=== PATIENT | male | born 1980 | race Caucasian/White ===

== ENCOUNTER 2018-10-16 11:35 | Emergency (ER) | payer OTHER ==
[~2018-10-16] VITALS: Ht 180.3 cm; Wt 83.9 kg
[2018-10-16 11:44] VITALS: Ht 180.3 cm; Wt 83.9 kg
[2018-10-16 15:36] VITALS: BP 140/95
== END 2018-10-16 16:10 | disposition home or self-care (01) ==
LOC: ED 11:35
DX: J06.9 Acute upper respiratory infection, unspecified (principal); J45.909 Unspecified asthma, uncomplicated

== ENCOUNTER 2019-02-16 02:57 | Emergency (ER) | payer OTHER ==
[~2019-02-16] VITALS: Ht 180.3 cm; Wt 84.4 kg
[2019-02-16 03:02] VITALS: Ht 180.3 cm; Wt 84.4 kg
[2019-02-16 04:11] LABS: BASOPHIL % 1.1 % (0-2); PLATELET COUNT 267 x10^3mcL (130-400)
[2019-02-16 04:21] LABS: CALCIUM 8.7 mg/dL (8.5-10.1); CARBON DIOXIDE 28.4 mmol/L (21-32); CHLORIDE SERUM 103 mmol/L (98-107); CREATININE SERUM 0.9 mg/dL (0.7-1.3); GFR1 > 60 mL/min; GLUCOSE SERUM 109 mg/dL (74-106); POTASSIUM SERUM 3.7 mmol/L (3.5-5.1); SODIUM SERUM 139 mmol/L (136-145)
[2019-02-16 05:09] VITALS: BP 136/82
== END 2019-02-16 05:09 | disposition home or self-care (01) ==
LOC: ED 02:57
PROVIDERS: Emergency Medicine
DX: R07.89 Other chest pain (principal); F41.9 Anxiety disorder, unspecified; J45.909 Unspecified asthma, uncomplicated
CPT/HCPCS: 36415; Q0092

== ENCOUNTER 2019-08-14 20:41 | Emergency (ER) | payer OTHER ==
[2019-08-14 21:08] VITALS: BP 126/81
== END 2019-08-14 23:15 | disposition home or self-care (01) ==
LOC: ED 20:41
DX: J45.901 Unspecified asthma with (acute) exacerbation (principal)
CPT/HCPCS: J2930; J7613; J7620

== ENCOUNTER 2020-02-28 16:38 | Emergency (ER) | payer OTHER, SELFPAY ==
[~2020-02-28] VITALS: Ht 180.3 cm; Wt 78.9 kg
[2020-02-28 17:08] VITALS: Ht 180.3 cm; Wt 78.9 kg
[2020-02-28 17:46] LABS: BASOPHIL % 0.5 % (0-2); PLATELET COUNT 286 x10^3mcL (130-400); RED CELL DISTRIBUTION WIDTH 13.5 % (11.5-14.5)
[2020-02-28 18:20] LABS: CALCIUM 8.6 mg/dL (8.5-10.1); CARBON DIOXIDE 26.6 mmol/L (21-32); CHLORIDE SERUM 102 mmol/L (98-107); CREATININE SERUM 1.2 mg/dL (0.7-1.3); GFR1 > 60 mL/min; GLUCOSE SERUM 97 mg/dL (74-106); POTASSIUM SERUM 3.5 mmol/L (3.5-5.1); SODIUM SERUM 138 mmol/L (136-145)
[2020-02-28 18:24] LABS: ALBUMIN 3.6 g/dL (3.4-5.0); ALKALINE PHOSPHATASE 95 U/L (46-116); ALT/SGPT 94 U/L (16-63); AST/SGOT 47 U/L (15-37); BILIRUBIN TOTAL 2.01 mg/dL (0.20-1.00); TOTAL PROTEIN, SERUM 7.8 g/dL (6.4-8.2)
[2020-02-28 20:12] LABS: C REACTIVE PROTEIN 3.9 mg/dL (<=0.9)
[2020-02-28 20:38] VITALS: BP 119/70
== END 2020-02-28 20:38 | disposition home or self-care (01) ==
LOC: ED 16:38
PROVIDERS: Specialist
DX: J45.909 Unspecified asthma, uncomplicated (principal); R11.2 Nausea with vomiting, unspecified; R19.7 Diarrhea, unspecified; R00.0 Tachycardia, unspecified; R79.1 Abnormal coagulation profile
CPT/HCPCS: 36600; 83880; 85378; 87804; J2405; J3490; J7030; Q0092